=== PATIENT | male | born 1955 | race Hispanic/Latino ===

== ENCOUNTER 2023-06-12 07:22 | Outpatient (CLI) | payer OTHER | END 2023-06-12 07:23 | disposition home or self-care (01) | LOC: CSHCT 07:22 | PROVIDERS: ATTEND Otolaryngology Otolaryngic Allergy | DX: D17.0 Benign lipomatous neoplasm of skin and subcutaneous tissue of head, face and neck (principal); E65 Localized adiposity | CPT/HCPCS: 70491; 82565 ==